=== PATIENT | female | born 1985 | race Native Hawaiian/Other Pacific Islander ===

== ENCOUNTER 2016-11-13 14:50 | Emergency (ER) | payer OTHER ==
[~2016-11-13] VITALS: Ht 162.6 cm; Wt 70.3 kg
[2016-11-13 16:35] VITALS: TEMP 98.5
[2016-11-13 18:34] VITALS: BP 132/80
== END 2016-11-13 18:35 | disposition home or self-care (01) ==
LOC: ED 14:50
DX: B02.9 Zoster without complications (principal)
CPT/HCPCS: 99281

== ENCOUNTER 2016-11-15 19:22 | Emergency (ER) | payer OTHER ==
[~2016-11-15] VITALS: Ht 162.6 cm; Wt 70.3 kg
[2016-11-15 20:29] VITALS: BP 143/87; TEMP 98.2
== END 2016-11-15 20:29 | disposition home or self-care (01) ==
LOC: ED 19:22
DX: H60.591 Other noninfective acute otitis externa, right ear (principal)
CPT/HCPCS: 99282

== ENCOUNTER 2019-07-23 11:21 | Emergency (ER) | payer OTHER ==
[~2019-07-23] VITALS: Ht 162.6 cm; Wt 70.3 kg
[2019-07-23 12:10] LABS: PLATELET COUNT 212 K/uL (152-353)
[2019-07-23 12:18] LABS: POTASSIUM 4.1 mmol/L (3.6-5.2)
[2019-07-23 14:53] VITALS: TEMP 99.6
[2019-07-23 15:15] VITALS: BP 110/59
== END 2019-07-23 15:50 | disposition home or self-care (01) ==
LOC: ED 11:21
PROVIDERS: Family Medicine
DX: N39.0 Urinary tract infection, site not specified (principal); E87.1 Hypo-osmolality and hyponatremia; R50.9 Fever, unspecified; R51 Headache
CPT/HCPCS: 80053; 80307; 81000; 81025; 85027; 87077; 87086; 87088; 87186; 87502; 96360; 96365; 99284; J0696

== ENCOUNTER 2022-11-08 01:22 | Emergency (ER) | payer OTHER ==
[~2022-11-08] VITALS: Ht 162.6 cm; Wt 68.0 kg
[2022-11-08 01:25] VITALS: BP 153/97; TEMP 98.5
== END 2022-11-08 04:29 | disposition home or self-care (01) ==
LOC: ED 01:22
PROC: 0HQFXZZ Repair Right Hand Skin, External Approach (ICD-10-PCS; principal; 2022-11-08)
DX: S61.210A Laceration without foreign body of right index finger without damage to nail, initial encounter (principal); S60.021A Contusion of right index finger without damage to nail, initial encounter; X58.XXXA Exposure to other specified factors, initial encounter
CPT/HCPCS: 99283